=== PATIENT | male | born 1945 | race Caucasian/White ===

== ENCOUNTER 2017-07-04 13:21 | Inpatient (IN) | payer MEDICARE ==
[~2017-07-04] VITALS: Ht 175.3 cm; Wt 80.8 kg
[2017-07-04] MEDS ORDERED: MORPHINE SULFATE 4 MG/ML, 1ML IVPush PRN (14:30)
[2017-07-04] MEDS ORDERED: ONDANSETRON ODT 4 MG PO ONE (14:30)
[2017-07-04 14:40] LABS: BASOPHILS # (AUTO) 0.03 x10^3/uL (0-0.1); BASOPHILS % (AUTO) 0 % (0-1); EOSINOPHILS # (AUTO) 0.15 x10^3/uL (0-0.4); EOSINOPHILS % (AUTO) 2 % (1-7); LYMPHOCYTES # (AUTO) 2.11 x10^3/uL (1-3.4); LYMPHOCYTES % (AUTO) 32 % (22-44); MD NO; MEAN CORPUSCULAR HEMOGLOBIN 30.6 pg (27.5-34.5); MEAN CORPUSCULAR HGB CONC 33.5 g/dL (33.2-36.2); MEAN CORPUSCULAR VOLUME 91.5 fL (81-97); MEAN PLATELET VOLUME 6.7 fL (7.4-10.4); MONOCYTES # (AUTO) 0.61 x10^3/uL (0.2-0.8); MONOCYTES % (AUTO) 9 % (2-9); NEUTROPHILS # (AUTO) 3.73 x10^3/uL (1.8-6.8); NEUTROPHILS % (AUTO) 56 % (42-75); PLATELET COUNT 299 x10^3/uL (130-400); RED BLOOD COUNT 4.88 x10^6/uL (4.38-5.82); RED CELL DISTRIBUTION WIDTH 14.1 % (9.4-14.8)
[2017-07-04 14:49] LABS: INTERNATIONAL NORMALIZED RATIO 0.99 (0.93-1.1); PROTHROMBIN TIME 10.3 Seconds (9.6-11.5)
[2017-07-04] MEDS ORDERED: DIVA-68 PO (14:49)
[2017-07-04] MEDS ORDERED: DULO30CA2 PO (14:49)
[2017-07-04] MEDS ORDERED: LORA1TAB PO (14:49)
[2017-07-04] MEDS ORDERED: TAMS0.4C2 PO (14:49)
[2017-07-04] MEDS ORDERED: PROP120C3 PO (14:49)
[2017-07-04 14:53] LABS: ALANINE AMINOTRANSFERASE 20 U/L (12-78); ALBUMIN 3.7 g/dL (3.4-5.0); ANION GAP 6 mmol/L (5-15); CHLORIDE 111 mmol/L (98-107)
[2017-07-04 14:55] LABS: ALKALINE PHOSPHATASE 49 U/L (45-117); BILIRUBIN,TOTAL 0.4 mg/dL (0.2-1.0); TOTAL PROTEIN 6.4 g/dL (6.4-8.2)
[2017-07-04] MEDS ORDERED: ONDANSETRON ODT 4 MG ONE (14:55)
[2017-07-04] MEDS ORDERED: MORPHINE SULFATE 4 MG/ML, 1ML ONE (15:13)
[2017-07-04] MEDS ORDERED: ONDANSETRON ODT 4 MG PO PRN (15:30)
[2017-07-04] MEDS ORDERED: ACETAMINOPHEN 325 MG TABLET PO PRN (15:30)
[2017-07-04] MEDS ORDERED: POLYETHYLENE GLYCOL 17 GM PACKET PO PRN (15:30)
[2017-07-04] MEDS: ENALAPRILAT 1.25 MG/ML, 2ML IVPush PRN ×2 (17:52→20:13)
[2017-07-04] MEDS: SODIUM CHLORIDE 0.9% 1,000 ML IV SCH (17:53)
[2017-07-04] MEDS ORDERED: hydrALAzine 20 MG/ML, 1ML ONE (20:50)
[2017-07-04] MEDS: DIVALPROEX 500 MG TABLET.DR PO SCH (20:55)
[2017-07-04] MEDS: hydrALAzine 20 MG/ML, 1ML IV PRN (20:55)
[2017-07-04] MEDS: LORazepam 1MG TABLET PO PRN ×2 (21:00→23:11)
[2017-07-05 04:29] LABS: BASOPHILS # (AUTO) 0.04 x10^3/uL (0-0.1); BASOPHILS % (AUTO) 1 % (0-1); EOSINOPHILS # (AUTO) 0.28 x10^3/uL (0-0.4); EOSINOPHILS % (AUTO) 4 % (1-7); LYMPHOCYTES # (AUTO) 2.68 x10^3/uL (1-3.4); LYMPHOCYTES % (AUTO) 36 % (22-44); MD NO; MEAN CORPUSCULAR HEMOGLOBIN 30.4 pg (27.5-34.5); MEAN CORPUSCULAR HGB CONC 33.2 g/dL (33.2-36.2); MEAN CORPUSCULAR VOLUME 91.6 fL (81-97); MEAN PLATELET VOLUME 6.9 fL (7.4-10.4); MONOCYTES # (AUTO) 0.65 x10^3/uL (0.2-0.8); MONOCYTES % (AUTO) 9 % (2-9); NEUTROPHILS % (AUTO) 51 % (42-75); PLATELET COUNT 274 x10^3/uL (130-400); RED BLOOD COUNT 4.59 x10^6/uL (4.38-5.82); RED CELL DISTRIBUTION WIDTH 14.2 % (9.4-14.8)
[2017-07-05 04:38] LABS: ALANINE AMINOTRANSFERASE 18 U/L (12-78); ALBUMIN 3.1 g/dL (3.4-5.0); ANION GAP 8 mmol/L (5-15); CALCIUM 8.5 mg/dL (8.5-10.1); CHLORIDE 110 mmol/L (98-107); CREATININE 0.82 mg/dL (0.7-1.3)
[2017-07-05 04:48] LABS: ALKALINE PHOSPHATASE 44 U/L (45-117); BILIRUBIN,TOTAL 0.3 mg/dL (0.2-1.0); TOTAL PROTEIN 5.5 g/dL (6.4-8.2)
[2017-07-05] MEDS: LORazepam 1MG TABLET PO PRN ×2 (05:12→13:48)
[2017-07-05] MEDS ORDERED: OXYcodone IR 5MG TABLET PO ONE (06:30)
[2017-07-05] MEDS: DULOXETINE 30 MG CAPSULE.DR PO SCH (08:19)
[2017-07-05] MEDS: PROPRANOLOL 120 MG CAP.SA.24H PO SCH (08:19)
[2017-07-05] MEDS: TAMSULOSIN 0.4 MG CAP.ER.24H PO SCH (08:19)
[2017-07-05] MEDS: PANTOPROZOLE 40MG TABLET PO SCH (08:19)
[2017-07-05] MEDS: SENNA/DOCUSATE TABLET PO SCH (08:19)
[2017-07-05 08:53] LABS: PLATELET (PFA) 324 x10^3/uL (130-400)
[2017-07-05 09:40] LABS: ADP CARTRIDGE 68 SECONDS (64-123)
[2017-07-05] MEDS: SODIUM CHLORIDE 0.9% 1,000 ML IV SCH (10:48)
[2017-07-05] MEDS: hydrALAzine 20 MG/ML, 1ML IV PRN ×2 (17:07→23:48)
[2017-07-05 20:03] VITALS: BP 113/52
[2017-07-05 20:34] VITALS: BP 126/59
[2017-07-05 20:45] VITALS: BP 135/64
[2017-07-05] MEDS: DIVALPROEX 500 MG TABLET.DR PO SCH (21:03)
[2017-07-05 21:11] VITALS: BP 139/58
[2017-07-05 21:35] VITALS: BP 110/76
[2017-07-06 04:57] LABS: PLATELET (PFA) 357 x10^3/uL (130-400)
[2017-07-06] MEDS: hydrALAzine 20 MG/ML, 1ML IV PRN ×2 (07:22→21:48)
[2017-07-06] MEDS: SENNA/DOCUSATE TABLET PO SCH (08:02)
[2017-07-06] MEDS: PANTOPROZOLE 40MG TABLET PO SCH (08:02)
[2017-07-06] MEDS: DULOXETINE 30 MG CAPSULE.DR PO SCH (08:02)
[2017-07-06] MEDS: PROPRANOLOL 120 MG CAP.SA.24H PO SCH (08:02)
[2017-07-06] MEDS: TAMSULOSIN 0.4 MG CAP.ER.24H PO SCH (08:02)
[2017-07-06] MEDS: LISINOPRIL 10 MG TABLET PO SCH ×2 (08:15→20:39)
[2017-07-06] MEDS: CARVEDILOL 6.25 MG TABLET PO SCH ×2 (09:08→17:22)
[2017-07-06] MEDS: OXYcodone IR 5MG TABLET PO PRN ×3 (12:29→20:39)
[2017-07-06] MEDS: DIVALPROEX 500 MG TABLET.DR PO SCH (20:40)
[2017-07-06] MEDS: LABETALOL 5MG/ML, 20ML IVPush PRN (23:18)
[2017-07-07] MEDS: LABETALOL 5MG/ML, 20ML IVPush PRN ×2 (01:24→06:10)
[2017-07-07] MEDS: OXYcodone IR 5MG TABLET PO PRN ×4 (01:44→23:50)
[2017-07-07 04:31] LABS: ANION GAP 8 mmol/L (5-15); CHLORIDE 105 mmol/L (98-107); CREATININE 0.92 mg/dL (0.7-1.3)
[2017-07-07] MEDS: hydrALAzine 20 MG/ML, 1ML IV PRN ×4 (04:40→17:17)
[2017-07-07 04:49] LABS: BASOPHILS # (AUTO) 0.04 x10^3/uL (0-0.1); BASOPHILS % (AUTO) 0 % (0-1); EOSINOPHILS # (AUTO) 0.07 x10^3/uL (0-0.4); EOSINOPHILS % (AUTO) 1 % (1-7); LYMPHOCYTES % (AUTO) 14 % (22-44); MD NO; MEAN CORPUSCULAR HGB CONC 33.2 g/dL (33.2-36.2); MEAN CORPUSCULAR VOLUME 90.5 fL (81-97); MEAN PLATELET VOLUME 7.4 fL (7.4-10.4); MONOCYTES % (AUTO) 9 % (2-9); NEUTROPHILS # (AUTO) 8.57 x10^3/uL (1.8-6.8); NEUTROPHILS % (AUTO) 76 % (42-75); PLATELET COUNT 340 x10^3/uL (130-400)
[2017-07-07] MEDS: CARVEDILOL 6.25 MG TABLET PO SCH ×2 (04:55→16:34)
[2017-07-07 05:03] LABS: PLATELET (PFA) 353 x10^3/uL (130-400)
[2017-07-07] MEDS ORDERED: REMIFENTANIL 2 MG ONE (07:02)
[2017-07-07] MEDS ORDERED: MIDAZOLAM 1 MG/ML, 2ML ONE (07:06)
[2017-07-07] MEDS ORDERED: BUPIVACAINE/PF 0.5% ONE (07:10)
[2017-07-07] MEDS ORDERED: BACITRACIN 50,000 UNIT ONE (07:10)
[2017-07-07] MEDS ORDERED: THROMBIN 20,000 UNIT VIAL TP ONE (07:10)
[2017-07-07] MEDS ORDERED: EPINEPHRINE 1 MG/ML, 1ML ONE (07:10)
[2017-07-07] MEDS ORDERED: LIDOCAINE 4%, 4 ML SYR/CANN TP ONE (07:39)
[2017-07-07] MEDS ORDERED: LIDOCAINE-MPF 1%, 5ML ONE (07:39)
[2017-07-07] MEDS ORDERED: LABETALOL 5MG/ML, 20ML IV PRN (08:00)
[2017-07-07] MEDS ORDERED: PROMETHAZINE 25 MG/ML, 1ML IV PRN (08:00)
[2017-07-07] MEDS ORDERED: morphine SULFATE 10 MG/ML, 1ML IV PRN (08:00)
[2017-07-07] MEDS ORDERED: OXYcodone 5 MG/5 ML ORAL.SOL UDC PO PRN (08:00)
[2017-07-07] MEDS ORDERED: ACETAMINOPHEN 325 MG TABLET PO PRN ×2 (08:00→12:30)
[2017-07-07] MEDS ORDERED: ONDANSETRON 2MG/ML, 2ML IVPush PRN (08:00)
[2017-07-07] MEDS ORDERED: BUPIVACAINE/PF-EPI 0.5% 1:200K INFIL ONE (08:36)
[2017-07-07] MEDS ORDERED: DEXAMETHASONE 4 MG/ML, 1ML ONE (08:47)
[2017-07-07] MEDS ORDERED: NEOSTIGMINE 1 MG/ML, 10ML ONE (08:47)
[2017-07-07] MEDS ORDERED: CEFAZOLIN 1,000 MG ONE (08:47)
[2017-07-07] MEDS ORDERED: SUCCINYLCHOLINE 20 MG/ML, 10ML ONE ×2 (08:47→09:01)
[2017-07-07] MEDS ORDERED: GLYCOPYRROLATE 0.2MG/1ML, 5ML ONE (08:47)
[2017-07-07] MEDS ORDERED: PROPOFOL 10 MG/ML, 20ML ONE ×2 (08:47→09:01)
[2017-07-07] MEDS ORDERED: ONDANSETRON 2MG/ML, 2ML ONE (08:47)
[2017-07-07] MEDS: SENNA/DOCUSATE TABLET PO SCH (09:00)
[2017-07-07] MEDS ORDERED: ROCURONIUM 10MG/ML,5ML ONE (09:01)
[2017-07-07] MEDS ORDERED: PHENYLEPHRINE 10 MG/ML ONE ×2 (09:18)
[2017-07-07] MEDS ORDERED: VASOPRESSIN 20 UNIT/ML, 1ML ONE (09:18)
[2017-07-07] MEDS ORDERED: NEOSPORIN OINT, 15GM ONE (09:55)
[2017-07-07] MEDS ORDERED: hydrALAzine 20 MG/ML, 1ML ONE (10:48)
[2017-07-07] MEDS ORDERED: FENTANYL PF 100 MCG/2ML ONE (10:54)
[2017-07-07] MEDS: FENTANYL PF 100 MCG/2ML IV PRN ×2 (11:00→11:19)
[2017-07-07] MEDS ORDERED: OXYcodone 5 MG/5 ML ORAL.SOL UDC ONE (11:22)
[2017-07-07] MEDS ORDERED: ACETAMINOPHEN 650 MG SUPP PR PRN (12:30)
[2017-07-07] MEDS ORDERED: LABETALOL 250 MG in DEXTROSE 5% 200 ML IV PRN (12:30)
[2017-07-07] MEDS ORDERED: ONDANSETRON 2MG/ML, 2ML IV PRN (12:30)
[2017-07-07] MEDS ORDERED: MAGNESIUM HYDROXIDE 8%, 30ML UDC PO PRN (12:30)
[2017-07-07] MEDS ORDERED: NITROPRUSSIDE 50 MG in DEXTROSE 5% 248 ML IV PRN (12:30)
[2017-07-07] MEDS ORDERED: D5%-0.9% NACL+KCL 20MEQ 1,000 ML IV SCH (12:30)
[2017-07-07] MEDS ORDERED: DIPHENHYDRAMINE 50 MG/ML, 1ML IM PRN (12:30)
[2017-07-07] MEDS ORDERED: OXYcodone/APAP 5/325MG TABLET PO PRN (12:30)
[2017-07-07] MEDS ORDERED: BISACODYL 10 MG SUPP PR PRN (12:30)
[2017-07-07] MEDS ORDERED: hydrALAzine 20 MG/ML, 1ML IV PRN (12:30)
[2017-07-07] MEDS ORDERED: DIPHENHYDRAMINE 50 MG/ML, 1ML IV PRN (12:30)
[2017-07-07] MEDS ORDERED: HYDROmorphone 2 MG/ML, 1ML IV PRN (12:30)
[2017-07-07] MEDS: CEFAZOLIN PMX 2GM/50ML 50 ML IVPB SCH ×2 (12:46→23:53)
[2017-07-07] MEDS: ENALAPRILAT 1.25 MG/ML, 2ML IV SCH ×3 (14:52→23:08)
[2017-07-07] MEDS: DULOXETINE 30 MG CAPSULE.DR PO SCH (15:02)
[2017-07-07] MEDS: PANTOPROZOLE 40MG TABLET PO SCH (15:02)
[2017-07-07] MEDS: TAMSULOSIN 0.4 MG CAP.ER.24H PO SCH (15:02)
[2017-07-07] MEDS: ENALAPRILAT 1.25 MG/ML, 2ML IVPush PRN (15:38)
[2017-07-07] MEDS: LABETALOL 5MG/ML, 20ML IV PRN ×2 (16:34→18:37)
[2017-07-07] MEDS: DIVALPROEX 500 MG TABLET.DR PO SCH ×2 (20:24→20:42)
[2017-07-07] MEDS: ACETAMINOPHEN 325 MG TABLET PO PRN (20:42)
[2017-07-07] MEDS: LORazepam 1MG TABLET PO PRN (21:21)
[2017-07-08] MEDS: ENALAPRILAT 1.25 MG/ML, 2ML IV SCH ×6 (02:32→22:32)
[2017-07-08] MEDS: ACETAMINOPHEN 650 MG SUPP PR PRN (02:56)
[2017-07-08] MEDS: CARVEDILOL 6.25 MG TABLET PO SCH ×2 (06:18→18:27)
[2017-07-08] MEDS: SENNA/DOCUSATE TABLET PO SCH (09:00)
[2017-07-08] MEDS ORDERED: SENNA/DOCUSATE TABLET PO SCH (09:00)
[2017-07-08] MEDS: ACETAMINOPHEN 325 MG TABLET PO PRN ×2 (10:31→16:24)
[2017-07-08] MEDS: PANTOPROZOLE 40MG TABLET PO SCH (10:31)
[2017-07-08] MEDS: TAMSULOSIN 0.4 MG CAP.ER.24H PO SCH (10:31)
[2017-07-08] MEDS: DULOXETINE 30 MG CAPSULE.DR PO SCH (10:35)
[2017-07-08] MEDS: DIVALPROEX 500 MG TABLET.DR PO SCH ×2 (13:35→21:21)
[2017-07-08] MEDS: hydrALAzine 20 MG/ML, 1ML IV PRN ×3 (14:36→14:46)
[2017-07-08] MEDS: OXYcodone IR 5MG TABLET PO PRN (21:25)
[2017-07-09] MEDS: hydrALAzine 20 MG/ML, 1ML IV PRN ×2 (00:04→21:56)
[2017-07-09] MEDS: ENALAPRILAT 1.25 MG/ML, 2ML IV SCH ×6 (02:39→22:35)
[2017-07-09] MEDS: OXYcodone IR 5MG TABLET PO PRN ×3 (03:17→23:44)
[2017-07-09 04:16] LABS: BASOPHILS # (AUTO) 0.01 x10^3/uL (0-0.1); BASOPHILS % (AUTO) 0 % (0-1); EOSINOPHILS # (AUTO) 0.03 x10^3/uL (0-0.4); EOSINOPHILS % (AUTO) 0 % (1-7); LYMPHOCYTES # (AUTO) 1.37 x10^3/uL (1-3.4); LYMPHOCYTES % (AUTO) 12 % (22-44); MD NO; MEAN CORPUSCULAR HEMOGLOBIN 30.5 pg (27.5-34.5); MEAN CORPUSCULAR HGB CONC 33.4 g/dL (33.2-36.2); MEAN CORPUSCULAR VOLUME 91.2 fL (81-97); MEAN PLATELET VOLUME 7.6 fL (7.4-10.4); MONOCYTES # (AUTO) 1.33 x10^3/uL (0.2-0.8); MONOCYTES % (AUTO) 11 % (2-9); NEUTROPHILS # (AUTO) 9.19 x10^3/uL (1.8-6.8); NEUTROPHILS % (AUTO) 77 % (42-75); PLATELET COUNT 261 x10^3/uL (130-400); RED BLOOD COUNT 3.92 x10^6/uL (4.38-5.82); RED CELL DISTRIBUTION WIDTH 14.1 % (9.4-14.8)
[2017-07-09 04:22] LABS: ALANINE AMINOTRANSFERASE 14 U/L (12-78); ALBUMIN 2.8 g/dL (3.4-5.0); ANION GAP 9 mmol/L (5-15); CALCIUM 8.4 mg/dL (8.5-10.1); CHLORIDE 110 mmol/L (98-107)
[2017-07-09 04:49] LABS: ALKALINE PHOSPHATASE 46 U/L (45-117); BILIRUBIN,TOTAL 0.6 mg/dL (0.2-1.0); TOTAL PROTEIN 6.1 g/dL (6.4-8.2)
[2017-07-09] MEDS: CARVEDILOL 6.25 MG TABLET PO SCH ×2 (05:42→18:15)
[2017-07-09] MEDS ORDERED: ERGOCALCIFEROL 50,000 UNIT CAPSULE PO STA (08:34)
[2017-07-09] MEDS: DIVALPROEX 500 MG TABLET.DR PO SCH ×2 (08:53→20:40)
[2017-07-09] MEDS: TAMSULOSIN 0.4 MG CAP.ER.24H PO SCH (08:53)
[2017-07-09] MEDS: CYANOCOBALAMIN 1,000 MCG TABLET PO SCH (08:53)
[2017-07-09] MEDS: PANTOPROZOLE 40MG TABLET PO SCH (08:53)
[2017-07-09] MEDS: SENNA/DOCUSATE TABLET PO SCH (08:53)
[2017-07-09] MEDS: DULOXETINE 30 MG CAPSULE.DR PO SCH (08:54)
[2017-07-09] MEDS: CALCIUM/VITAMIN D3 250-125 TABLET PO SCH ×3 (08:55→20:40)
[2017-07-09] MEDS: LISINOPRIL 10 MG TABLET PO SCH ×2 (12:12→22:35)
[2017-07-09] MEDS: THIAMINE 100MG TABLET PO SCH (12:12)
[2017-07-09] MEDS: FOLIC ACID 1 MG TABLET PO SCH (12:12)
[2017-07-10] MEDS: ENALAPRILAT 1.25 MG/ML, 2ML IV SCH ×6 (02:35→22:35)
[2017-07-10 04:32] LABS: MEAN CORPUSCULAR HEMOGLOBIN 30.9 pg (27.5-34.5); MEAN CORPUSCULAR HGB CONC 33.7 g/dL (33.2-36.2); MEAN CORPUSCULAR VOLUME 91.8 fL (81-97); MEAN PLATELET VOLUME 7.8 fL (7.4-10.4); PLATELET COUNT 266 x10^3/uL (130-400); RED BLOOD COUNT 3.96 x10^6/uL (4.38-5.82); RED CELL DISTRIBUTION WIDTH 14.1 % (9.4-14.8)
[2017-07-10 04:46] LABS: ALANINE AMINOTRANSFERASE 13 U/L (12-78); ALBUMIN 2.8 g/dL (3.4-5.0); ANION GAP 11 mmol/L (5-15); CALCIUM 8.2 mg/dL (8.5-10.1); CHLORIDE 107 mmol/L (98-107); CREATININE 0.72 mg/dL (0.7-1.3)
[2017-07-10 04:48] LABS: ALKALINE PHOSPHATASE 53 U/L (45-117); BILIRUBIN,TOTAL 0.6 mg/dL (0.2-1.0); TOTAL PROTEIN 6.5 g/dL (6.4-8.2)
[2017-07-10 04:50] LABS: BASOPHILS # (AUTO) 0.06 x10^3/uL (0-0.1); BASOPHILS % (AUTO) 1 % (0-1); EOSINOPHILS # (AUTO) 0.03 x10^3/uL (0-0.4); EOSINOPHILS % (AUTO) 0 % (1-7); LYMPHOCYTES # (AUTO) 1.17 x10^3/uL (1-3.4); LYMPHOCYTES % (AUTO) 10 % (22-44); MD SCAN; MONOCYTES # (AUTO) 1.67 x10^3/uL (0.2-0.8); MONOCYTES % (AUTO) 14 % (2-9); NEUTROPHILS # (AUTO) 9.37 x10^3/uL (1.8-6.8); NEUTROPHILS % (AUTO) 76 % (42-75)
[2017-07-10] MEDS: CARVEDILOL 6.25 MG TABLET PO SCH ×3 (06:00→18:12)
[2017-07-10] MEDS: PANTOPROZOLE 40MG TABLET PO SCH (07:30)
[2017-07-10] MEDS ORDERED: LISINOPRIL 10 MG TABLET ONE (08:59)
[2017-07-10] MEDS: TAMSULOSIN 0.4 MG CAP.ER.24H PO SCH (09:00)
[2017-07-10] MEDS: CALCIUM/VITAMIN D3 250-125 TABLET PO SCH ×3 (09:00→21:16)
[2017-07-10] MEDS: DIVALPROEX 500 MG TABLET.DR PO SCH (09:00)
[2017-07-10] MEDS ORDERED: POTASSIUM PHOSPHATE 44 MEQ in SODIUM CHLORIDE 0.9% 500 ML IV ONE (09:00)
[2017-07-10] MEDS: DULOXETINE 30 MG CAPSULE.DR PO SCH (09:00)
[2017-07-10] MEDS: SENNA/DOCUSATE TABLET PO SCH (09:00)
[2017-07-10] MEDS: CYANOCOBALAMIN 1,000 MCG TABLET PO SCH (09:00)
[2017-07-10] MEDS: LORazepam 0.5MG TABLET PO PRN ×2 (10:48→23:55)
[2017-07-10] MEDS: LISINOPRIL 10 MG TABLET PO SCH ×2 (11:00→22:36)
[2017-07-10] MEDS: THIAMINE 100MG TABLET PO SCH (11:00)
[2017-07-10] MEDS: FOLIC ACID 1 MG TABLET PO SCH (11:00)
[2017-07-10] MEDS: hydrALAzine 20 MG/ML, 1ML IV PRN (13:21)
[2017-07-10] MEDS: DIVALPROEX 125 MG CAP.SPRINK PO SCH (21:16)
[2017-07-11] MEDS: ENALAPRILAT 1.25 MG/ML, 2ML IV SCH ×5 (02:26→21:23)
[2017-07-11 04:46] LABS: MEAN CORPUSCULAR HEMOGLOBIN 30.2 pg (27.5-34.5); MEAN CORPUSCULAR HGB CONC 33.2 g/dL (33.2-36.2); MEAN PLATELET VOLUME 7.8 fL (7.4-10.4); PLATELET COUNT 282 x10^3/uL (130-400); RED BLOOD COUNT 3.79 x10^6/uL (4.38-5.82); RED CELL DISTRIBUTION WIDTH 13.9 % (9.4-14.8)
[2017-07-11 04:49] LABS: ALBUMIN 2.4 g/dL (3.4-5.0); ANION GAP 9 mmol/L (5-15); CALCIUM 8.5 mg/dL (8.5-10.1); CHLORIDE 112 mmol/L (98-107)
[2017-07-11 04:53] LABS: ALANINE AMINOTRANSFERASE 15 U/L (12-78); ALKALINE PHOSPHATASE 46 U/L (45-117); BILIRUBIN,TOTAL 0.8 mg/dL (0.2-1.0); CREATININE 0.65 mg/dL (0.7-1.3); TOTAL PROTEIN 5.9 g/dL (6.4-8.2)
[2017-07-11 05:13] LABS: BASOPHILS # (AUTO) 0.03 x10^3/uL (0-0.1); BASOPHILS % (AUTO) 0 % (0-1); EOSINOPHILS % (AUTO) 0 % (1-7); LYMPHOCYTES # (AUTO) 0.93 x10^3/uL (1-3.4); LYMPHOCYTES % (AUTO) 9 % (22-44); MD SCAN; MONOCYTES # (AUTO) 1.76 x10^3/uL (0.2-0.8); MONOCYTES % (AUTO) 16 % (2-9); NEUTROPHILS # (AUTO) 8.05 x10^3/uL (1.8-6.8); NEUTROPHILS % (AUTO) 75 % (42-75)
[2017-07-11] MEDS ORDERED: CARVEDILOL 12.5 MG TABLET PO STA (09:20)
[2017-07-11] MEDS: TAMSULOSIN 0.4 MG CAP.ER.24H PO SCH (09:49)
[2017-07-11] MEDS: THIAMINE 100MG TABLET PO SCH (09:50)
[2017-07-11] MEDS: FOLIC ACID 1 MG TABLET PO SCH (09:51)
[2017-07-11] MEDS: DIVALPROEX 500 MG TABLET.DR PO SCH (09:51)
[2017-07-11] MEDS: LISINOPRIL 10 MG TABLET PO SCH ×2 (09:51→22:27)
[2017-07-11] MEDS: DULOXETINE 30 MG CAPSULE.DR PO SCH (09:51)
[2017-07-11] MEDS: PANTOPROZOLE 40MG TABLET PO SCH (09:52)
[2017-07-11] MEDS: SENNA/DOCUSATE TABLET PO SCH (09:52)
[2017-07-11] MEDS: CALCIUM/VITAMIN D3 250-125 TABLET PO SCH ×3 (09:52→21:01)
[2017-07-11] MEDS: CYANOCOBALAMIN 1,000 MCG TABLET PO SCH (09:52)
[2017-07-11] MEDS: CARVEDILOL 12.5 MG TABLET PO SCH (18:06)
[2017-07-11] MEDS: DIVALPROEX 125 MG CAP.SPRINK PO SCH (21:23)
[2017-07-12] MEDS: LORazepam 0.5MG TABLET PO PRN (00:14)
[2017-07-12] MEDS ORDERED: ALBUTEROL SULFATE 2.5 MG/3 ML ONE (00:40)
[2017-07-12] MEDS: ENALAPRILAT 1.25 MG/ML, 2ML IV SCH ×6 (01:33→20:50)
[2017-07-12] MEDS: ENALAPRILAT 1.25 MG/ML, 2ML IVPush PRN ×3 (01:55→06:31)
[2017-07-12] MEDS: ACETAMINOPHEN 650 MG SUPP PR PRN (02:10)
[2017-07-12 04:37] LABS: MEAN CORPUSCULAR HEMOGLOBIN 30.3 pg (27.5-34.5); MEAN CORPUSCULAR VOLUME 91.9 fL (81-97); MEAN PLATELET VOLUME 7.4 fL (7.4-10.4); PLATELET COUNT 305 x10^3/uL (130-400); RED BLOOD COUNT 3.64 x10^6/uL (4.38-5.82); RED CELL DISTRIBUTION WIDTH 13.5 % (9.4-14.8)
[2017-07-12 04:40] LABS: ALANINE AMINOTRANSFERASE 22 U/L (12-78); ALBUMIN 2.3 g/dL (3.4-5.0); ANION GAP 9 mmol/L (5-15); CALCIUM 8.4 mg/dL (8.5-10.1); CHLORIDE 116 mmol/L (98-107); CREATININE 0.68 mg/dL (0.7-1.3)
[2017-07-12 04:42] LABS: ALKALINE PHOSPHATASE 50 U/L (45-117); BILIRUBIN,TOTAL 0.6 mg/dL (0.2-1.0); TOTAL PROTEIN 5.9 g/dL (6.4-8.2)
[2017-07-12 05:18] LABS: BASOPHILS # (AUTO) 0.01 x10^3/uL (0-0.1); BASOPHILS % (AUTO) 0 % (0-1); EOSINOPHILS % (AUTO) 0 % (1-7); LYMPHOCYTES # (AUTO) 0.58 x10^3/uL (1-3.4); LYMPHOCYTES % (AUTO) 4 % (22-44); MD SCAN; MONOCYTES # (AUTO) 2.31 x10^3/uL (0.2-0.8); MONOCYTES % (AUTO) 14 % (2-9); NEUTROPHILS # (AUTO) 13.92 x10^3/uL (1.8-6.8); NEUTROPHILS % (AUTO) 83 % (42-75)
[2017-07-12] MEDS: CARVEDILOL 12.5 MG TABLET PO SCH ×2 (05:22→18:00)
[2017-07-12] MEDS ORDERED: ERGOCALCIFEROL 50,000 UNIT CAPSULE PO SCH (07:00)
[2017-07-12] MEDS: PANTOPROZOLE 40MG TABLET PO SCH (07:18)
[2017-07-12] MEDS: DIVALPROEX 500 MG TABLET.DR PO SCH (09:00)
[2017-07-12] MEDS: CALCIUM/VITAMIN D3 250-125 TABLET PO SCH ×3 (09:00→20:47)
[2017-07-12] MEDS: CYANOCOBALAMIN 1,000 MCG TABLET PO SCH (09:00)
[2017-07-12] MEDS: TAMSULOSIN 0.4 MG CAP.ER.24H PO SCH (09:00)
[2017-07-12] MEDS: DULOXETINE 30 MG CAPSULE.DR PO SCH (09:00)
[2017-07-12] MEDS: SENNA/DOCUSATE TABLET PO SCH (09:00)
[2017-07-12] MEDS: AMPICILLIN/SULBACTAM 3 GM in SODIUM CHLORIDE 0.9% 100 ML IV SCH ×3 (10:14→22:21)
[2017-07-12] MEDS ORDERED: LORazepam 2 MG/ML, 1ML IVPush PRN (10:30)
[2017-07-12] MEDS: FOLIC ACID 1 MG TABLET PO SCH (11:00)
[2017-07-12] MEDS: THIAMINE 100MG TABLET PO SCH (11:00)
[2017-07-12] MEDS: LISINOPRIL 10 MG TABLET PO SCH ×2 (11:05→20:48)
[2017-07-12 17:05] LABS: MICROSCOPIC AUTO
[2017-07-12 17:08] LABS: CULTURE INDICATED? YES
[2017-07-12] MEDS: DIVALPROEX 125 MG CAP.SPRINK PO SCH (20:47)
[2017-07-12] MEDS: AMLODIPINE 5 MG TABLET PO SCH (20:47)
[2017-07-12] MEDS: hydrALAzine 20 MG/ML, 1ML IV PRN (22:50)
[2017-07-13] MEDS: ENALAPRILAT 1.25 MG/ML, 2ML IV SCH ×5 (02:03→15:39)
[2017-07-13] MEDS: AMPICILLIN/SULBACTAM 3 GM in SODIUM CHLORIDE 0.9% 100 ML IV SCH ×4 (03:42→22:15)
[2017-07-13 04:28] LABS: MEAN CORPUSCULAR HEMOGLOBIN 30.7 pg (27.5-34.5); MEAN CORPUSCULAR HGB CONC 33.4 g/dL (33.2-36.2); MEAN CORPUSCULAR VOLUME 91.8 fL (81-97); MEAN PLATELET VOLUME 7.2 fL (7.4-10.4); PLATELET COUNT 320 x10^3/uL (130-400); RED CELL DISTRIBUTION WIDTH 14.2 % (9.4-14.8)
[2017-07-13 04:37] LABS: CALCIUM 8.4 mg/dL (8.5-10.1); CHLORIDE 120 mmol/L (98-107)
[2017-07-13 04:43] LABS: ANION GAP 10 mmol/L (5-15); CREATININE 0.61 mg/dL (0.7-1.3)
[2017-07-13 04:44] LABS: ALANINE AMINOTRANSFERASE 21 U/L (12-78); ALKALINE PHOSPHATASE 67 U/L (45-117); BILIRUBIN,TOTAL 0.7 mg/dL (0.2-1.0); TOTAL PROTEIN 5.8 g/dL (6.4-8.2)
[2017-07-13 04:56] LABS: MD YES
[2017-07-13 04:58] LABS: BANDS%(MANUAL) 10 % (0-7); LYMPHS% (MANUAL) 10 % (22-44); MONOS#(MANUAL) 1.14 x10^3/uL (0.3-2.7); MONOS% (MANUAL) 6 % (2-9); SEG#(MANUAL) 14.06 x10^3/uL (1.8-6.8); SEGS% (MANUAL) 74 % (42-75)
[2017-07-13 04:59] LABS: ANISOCYTOSIS 1+
[2017-07-13 05:00] LABS: <PLATELET ESTIMATE> ADEQUATE; <PLT MORPHOLOGY> NORMAL PLT MORPH
[2017-07-13] MEDS: DIVALPROEX 500 MG TABLET.DR PO SCH (10:13)
[2017-07-13] MEDS: CARVEDILOL 12.5 MG TABLET PO SCH ×2 (10:13→22:15)
[2017-07-13] MEDS: CALCIUM/VITAMIN D3 250-125 TABLET PO SCH ×3 (10:14→22:15)
[2017-07-13] MEDS: AMLODIPINE 5 MG TABLET PO SCH ×2 (10:14→22:15)
[2017-07-13] MEDS: SENNA/DOCUSATE TABLET PO SCH (10:14)
[2017-07-13] MEDS: DULOXETINE 30 MG CAPSULE.DR PO SCH (10:14)
[2017-07-13] MEDS: PANTOPROZOLE 40MG TABLET PO SCH (10:15)
[2017-07-13] MEDS: CYANOCOBALAMIN 1,000 MCG TABLET PO SCH (10:15)
[2017-07-13] MEDS: TAMSULOSIN 0.4 MG CAP.ER.24H PO SCH (10:20)
[2017-07-13] MEDS: FOLIC ACID 1 MG TABLET PO SCH (11:02)
[2017-07-13] MEDS: THIAMINE 100MG TABLET PO SCH (11:02)
[2017-07-13] MEDS: LISINOPRIL 10 MG TABLET PO SCH (14:50)
[2017-07-13] MEDS ORDERED: ENALAPRILAT 1.25 MG/ML, 2ML IV PRN (20:30)
[2017-07-13] MEDS: DIVALPROEX 125 MG CAP.SPRINK PO SCH (22:26)
[2017-07-14] MEDS: LISINOPRIL 10 MG TABLET PO SCH ×2 (03:53→21:15)
[2017-07-14] MEDS: AMPICILLIN/SULBACTAM 3 GM in SODIUM CHLORIDE 0.9% 100 ML IV SCH ×2 (03:54→10:08)
[2017-07-14 05:12] LABS: MEAN CORPUSCULAR HEMOGLOBIN 30.4 pg (27.5-34.5); MEAN CORPUSCULAR HGB CONC 32.9 g/dL (33.2-36.2); MEAN CORPUSCULAR VOLUME 92.4 fL (81-97); MEAN PLATELET VOLUME 7.6 fL (7.4-10.4); PLATELET COUNT 354 x10^3/uL (130-400); RED BLOOD COUNT 4.02 x10^6/uL (4.38-5.82); RED CELL DISTRIBUTION WIDTH 14.5 % (9.4-14.8)
[2017-07-14 05:22] LABS: ALBUMIN 1.8 g/dL (3.4-5.0); ANION GAP 8 mmol/L (5-15); CALCIUM 8.5 mg/dL (8.5-10.1); CHLORIDE 118 mmol/L (98-107)
[2017-07-14 05:26] LABS: ALANINE AMINOTRANSFERASE 25 U/L (12-78); ALKALINE PHOSPHATASE 70 U/L (45-117); BILIRUBIN,TOTAL 0.4 mg/dL (0.2-1.0); TOTAL PROTEIN 5.5 g/dL (6.4-8.2)
[2017-07-14 06:06] LABS: MD YES
[2017-07-14 06:07] LABS: BAND#(MANUAL) 2.07 x10^3/uL; BANDS%(MANUAL) 13 % (0-7); LYMPH#(MANUAL) 2.23 x10^3/uL (1-3.4); LYMPHS% (MANUAL) 14 % (22-44); MONOS#(MANUAL) 0.95 x10^3/uL (0.3-2.7); MONOS% (MANUAL) 6 % (2-9); SEG#(MANUAL) 10.65 x10^3/uL (1.8-6.8); SEGS% (MANUAL) 67 % (42-75)
[2017-07-14 06:12] LABS: <PLATELET ESTIMATE> ADEQUATE; <PLT MORPHOLOGY> NORMAL PLT MORPH; <RBC MORPHOLOGY> NORMAL
[2017-07-14] MEDS: CARVEDILOL 12.5 MG TABLET PO SCH ×2 (06:14→16:55)
[2017-07-14] MEDS: SENNA/DOCUSATE TABLET PO SCH (08:22)
[2017-07-14] MEDS: CALCIUM/VITAMIN D3 250-125 TABLET PO SCH ×3 (08:22→21:16)
[2017-07-14] MEDS: DIVALPROEX 125 MG CAP.SPRINK PO SCH ×2 (08:22→21:15)
[2017-07-14] MEDS: THIAMINE 100MG TABLET PO SCH (08:22)
[2017-07-14] MEDS: DULOXETINE 30 MG CAPSULE.DR PO SCH (08:22)
[2017-07-14] MEDS: DEXTROSE 5% 1,000 ML IV SCH ×2 (08:22→21:16)
[2017-07-14] MEDS: CYANOCOBALAMIN 1,000 MCG TABLET PO SCH (08:22)
[2017-07-14] MEDS: AMLODIPINE 5 MG TABLET PO SCH ×2 (08:23→21:15)
[2017-07-14] MEDS: FOLIC ACID 1 MG TABLET PO SCH (08:23)
[2017-07-14] MEDS: TAMSULOSIN 0.4 MG CAP.ER.24H PO SCH (08:23)
[2017-07-14] MEDS: PANTOPROZOLE 40MG TABLET PO SCH (08:23)
[2017-07-14 10:59] VITALS: BP 148/78
[2017-07-14] MEDS: PIPERACILLIN/TAZO/PMX 3.375GM 50 ML IV SCH ×3 (11:25→23:20)
[2017-07-14 13:05] VITALS: BP 160/71
[2017-07-14] MEDS: hydrALAzine 20 MG/ML, 1ML IV PRN ×2 (13:22→19:24)
[2017-07-14 13:47] VITALS: BP 138/74
[2017-07-14 16:55] VITALS: BP 138/89
[2017-07-14 18:56] VITALS: BP 176/81
[2017-07-14 20:30] VITALS: BP 159/77
[2017-07-15] VITALS (10 sets, daily range): BP systolic 130–173; BP diastolic 68–84
[2017-07-15] MEDS: LABETALOL 5MG/ML, 20ML IV PRN ×2 (02:35→23:44)
[2017-07-15] MEDS: hydrALAzine 20 MG/ML, 1ML IV PRN ×3 (02:35→17:15)
[2017-07-15] MEDS: OXYcodone IR 5MG TABLET PO PRN (02:39)
[2017-07-15] MEDS ORDERED: CARVEDILOL 6.25 MG TABLET ONE (05:08)
[2017-07-15] MEDS: PIPERACILLIN/TAZO/PMX 3.375GM 50 ML IV SCH ×4 (05:18→22:48)
[2017-07-15] MEDS: CARVEDILOL 12.5 MG TABLET PO SCH ×2 (05:18→17:10)
[2017-07-15 05:21] LABS: MEAN CORPUSCULAR HEMOGLOBIN 30.6 pg (27.5-34.5); MEAN CORPUSCULAR HGB CONC 33.5 g/dL (33.2-36.2); MEAN CORPUSCULAR VOLUME 91.2 fL (81-97); MEAN PLATELET VOLUME 7.2 fL (7.4-10.4); PLATELET COUNT 360 x10^3/uL (130-400); RED CELL DISTRIBUTION WIDTH 14.4 % (9.4-14.8)
[2017-07-15 05:26] LABS: ALBUMIN 1.8 g/dL (3.4-5.0); ANION GAP 6 mmol/L (5-15); CALCIUM 7.7 mg/dL (8.5-10.1); CHLORIDE 113 mmol/L (98-107)
[2017-07-15 05:32] LABS: ALANINE AMINOTRANSFERASE 23 U/L (12-78); ALKALINE PHOSPHATASE 69 U/L (45-117); BILIRUBIN,TOTAL 0.5 mg/dL (0.2-1.0); CREATININE 0.62 mg/dL (0.7-1.3); TOTAL PROTEIN 5.3 g/dL (6.4-8.2)
[2017-07-15 06:13] LABS: BASOPHILS # (AUTO) 0.01 x10^3/uL (0-0.1); BASOPHILS % (AUTO) 0 % (0-1); EOSINOPHILS # (AUTO) 0.03 x10^3/uL (0-0.4); EOSINOPHILS % (AUTO) 0 % (1-7); LYMPHOCYTES # (AUTO) 1.27 x10^3/uL (1-3.4); LYMPHOCYTES % (AUTO) 9 % (22-44); MD SCAN; MONOCYTES # (AUTO) 1.55 x10^3/uL (0.2-0.8); MONOCYTES % (AUTO) 11 % (2-9); NEUTROPHILS # (AUTO) 11.81 x10^3/uL (1.8-6.8); NEUTROPHILS % (AUTO) 81 % (42-75)
[2017-07-15] MEDS: DIVALPROEX 125 MG CAP.SPRINK PO SCH ×2 (07:54→20:07)
[2017-07-15] MEDS: CYANOCOBALAMIN 1,000 MCG TABLET PO SCH (07:54)
[2017-07-15] MEDS: DULOXETINE 30 MG CAPSULE.DR PO SCH (07:54)
[2017-07-15] MEDS: FOLIC ACID 1 MG TABLET PO SCH (07:55)
[2017-07-15] MEDS: LISINOPRIL 10 MG TABLET PO SCH ×2 (07:55→20:07)
[2017-07-15] MEDS: THIAMINE 100MG TABLET PO SCH (07:55)
[2017-07-15] MEDS: CALCIUM/VITAMIN D3 250-125 TABLET PO SCH ×3 (07:55→20:07)
[2017-07-15] MEDS: AMLODIPINE 5 MG TABLET PO SCH ×2 (07:55→20:07)
[2017-07-15] MEDS: TAMSULOSIN 0.4 MG CAP.ER.24H PO SCH (07:55)
[2017-07-15] MEDS: PANTOPROZOLE 40MG TABLET PO SCH (07:55)
[2017-07-15] MEDS: SENNA/DOCUSATE TABLET PO SCH (07:56)
[2017-07-15] MEDS: DEXTROSE 5% 1,000 ML IV SCH ×2 (07:56→20:06)
[2017-07-15] MEDS: ACETAMINOPHEN 325 MG TABLET PO PRN ×2 (11:40→17:15)
[2017-07-15] MEDS ORDERED: POTASSIUM CHLORIDE 20 MEQ TAB.ER.PRT PO ONE (18:00)
[2017-07-15] MEDS: LORazepam 0.5MG TABLET PO PRN (23:52)
[2017-07-16] VITALS (9 sets, daily range): BP systolic 132–181; BP diastolic 69–86
[2017-07-16] MEDS ORDERED: CARVEDILOL 6.25 MG TABLET ONE (05:06)
[2017-07-16] MEDS: PIPERACILLIN/TAZO/PMX 3.375GM 50 ML IV SCH ×2 (05:10→12:10)
[2017-07-16] MEDS: LABETALOL 5MG/ML, 20ML IV PRN (05:11)
[2017-07-16] MEDS: CARVEDILOL 12.5 MG TABLET PO SCH ×2 (05:11→16:43)
[2017-07-16] MEDS: DEXTROSE 5% 1,000 ML IV SCH (05:11)
[2017-07-16 06:10] LABS: MEAN CORPUSCULAR HEMOGLOBIN 30.3 pg (27.5-34.5); MEAN CORPUSCULAR HGB CONC 33.4 g/dL (33.2-36.2); MEAN CORPUSCULAR VOLUME 90.6 fL (81-97); MEAN PLATELET VOLUME 6.7 fL (7.4-10.4); PLATELET COUNT 376 x10^3/uL (130-400); RED BLOOD COUNT 3.89 x10^6/uL (4.38-5.82)
[2017-07-16 06:11] LABS: CHLORIDE 108 mmol/L (98-107)
[2017-07-16 06:16] LABS: ALANINE AMINOTRANSFERASE 25 U/L (12-78); ALKALINE PHOSPHATASE 63 U/L (45-117); ANION GAP 8 mmol/L (5-15); BILIRUBIN,TOTAL 0.4 mg/dL (0.2-1.0); CALCIUM 7.7 mg/dL (8.5-10.1); CREATININE 0.66 mg/dL (0.7-1.3); TOTAL PROTEIN 5.5 g/dL (6.4-8.2)
[2017-07-16 06:58] LABS: BASOPHILS # (AUTO) 0.03 x10^3/uL (0-0.1); BASOPHILS % (AUTO) 0 % (0-1); EOSINOPHILS # (AUTO) 0.09 x10^3/uL (0-0.4); EOSINOPHILS % (AUTO) 1 % (1-7); LYMPHOCYTES # (AUTO) 1.06 x10^3/uL (1-3.4); LYMPHOCYTES % (AUTO) 9 % (22-44); MD SCAN; MONOCYTES # (AUTO) 1.24 x10^3/uL (0.2-0.8); MONOCYTES % (AUTO) 11 % (2-9); NEUTROPHILS # (AUTO) 8.94 x10^3/uL (1.8-6.8); NEUTROPHILS % (AUTO) 79 % (42-75)
[2017-07-16] MEDS ORDERED: POTASSIUM CHLORIDE 20 MEQ TAB.ER.PRT PO ONE (07:00)
[2017-07-16] MEDS: hydrALAzine 20 MG/ML, 1ML IV PRN ×2 (08:06→16:43)
[2017-07-16] MEDS: LISINOPRIL 10 MG TABLET PO SCH ×2 (08:14→20:44)
[2017-07-16] MEDS: PANTOPROZOLE 40MG TABLET PO SCH (08:14)
[2017-07-16] MEDS: FOLIC ACID 1 MG TABLET PO SCH (08:14)
[2017-07-16] MEDS: TAMSULOSIN 0.4 MG CAP.ER.24H PO SCH (08:14)
[2017-07-16] MEDS: THIAMINE 100MG TABLET PO SCH (08:14)
[2017-07-16] MEDS: AMLODIPINE 5 MG TABLET PO SCH ×2 (08:16→20:43)
[2017-07-16] MEDS: CALCIUM/VITAMIN D3 250-125 TABLET PO SCH ×3 (08:17→20:43)
[2017-07-16] MEDS: CYANOCOBALAMIN 1,000 MCG TABLET PO SCH (08:17)
[2017-07-16] MEDS: DIVALPROEX 125 MG CAP.SPRINK PO SCH ×2 (08:17→20:43)
[2017-07-16] MEDS: DULOXETINE 30 MG CAPSULE.DR PO SCH (08:17)
[2017-07-16] MEDS: SENNA/DOCUSATE TABLET PO SCH (08:18)
[2017-07-16] MEDS: ACETAMINOPHEN 325 MG TABLET PO PRN (09:48)
[2017-07-16] MEDS ORDERED: CALC1TAB68 PO (13:03)
[2017-07-16] MEDS ORDERED: DIVA125C PO (13:03)
[2017-07-16] MEDS ORDERED: LORA-445 PO (13:03)
[2017-07-16] MEDS ORDERED: LISI-167 PO (13:03)
[2017-07-16] MEDS ORDERED: FOLI-17 PO (13:03)
[2017-07-16] MEDS ORDERED: CEFD300C37 PO (13:03)
[2017-07-16] MEDS ORDERED: ERGO500017 PO (13:03)
[2017-07-16] MEDS ORDERED: THIA100T6 PO (13:03)
[2017-07-16] MEDS ORDERED: CARV12.543 PO (13:03)
[2017-07-16] MEDS ORDERED: AMLO5TAB2 PO (13:03)
[2017-07-16] MEDS ORDERED: MAGN400O7 PO (13:03)
[2017-07-16] MEDS ORDERED: CYAN10005 PO (13:03)
[2017-07-16] MEDS: CEFDINIR 300 MG CAPSULE PO SCH (20:44)
[2017-07-16] MEDS: OXYcodone IR 5MG TABLET PO PRN (20:47)
[2017-07-17 00:16] VITALS: BP 164/76
[2017-07-17 05:19] LABS: MEAN CORPUSCULAR HEMOGLOBIN 30.6 pg (27.5-34.5); MEAN CORPUSCULAR HGB CONC 33.4 g/dL (33.2-36.2); MEAN CORPUSCULAR VOLUME 91.5 fL (81-97); MEAN PLATELET VOLUME 6.6 fL (7.4-10.4); PLATELET COUNT 304 x10^3/uL (130-400); RED BLOOD COUNT 4.01 x10^6/uL (4.38-5.82); RED CELL DISTRIBUTION WIDTH 14.2 % (9.4-14.8)
[2017-07-17 05:28] LABS: ANION GAP 8 mmol/L (5-15); CALCIUM 8.5 mg/dL (8.5-10.1); CHLORIDE 108 mmol/L (98-107); CREATININE 0.63 mg/dL (0.7-1.3)
[2017-07-17] MEDS: hydrALAzine 20 MG/ML, 1ML IV PRN (05:36)
[2017-07-17] MEDS: CARVEDILOL 12.5 MG TABLET PO SCH (05:36)
[2017-07-17 05:46] LABS: BASOPHILS # (AUTO) 0.03 x10^3/uL (0-0.1); BASOPHILS % (AUTO) 0 % (0-1); EOSINOPHILS # (AUTO) 0.09 x10^3/uL (0-0.4); EOSINOPHILS % (AUTO) 1 % (1-7); LYMPHOCYTES # (AUTO) 1.14 x10^3/uL (1-3.4); LYMPHOCYTES % (AUTO) 10 % (22-44); MD SCAN; MONOCYTES # (AUTO) 1.51 x10^3/uL (0.2-0.8); MONOCYTES % (AUTO) 13 % (2-9); NEUTROPHILS # (AUTO) 8.88 x10^3/uL (1.8-6.8); NEUTROPHILS % (AUTO) 76 % (42-75)
[2017-07-17 07:37] VITALS: BP 123/68
[2017-07-17] MEDS: PANTOPROZOLE 40MG TABLET PO SCH (08:18)
[2017-07-17] MEDS: DULOXETINE 30 MG CAPSULE.DR PO SCH (08:20)
[2017-07-17] MEDS: FOLIC ACID 1 MG TABLET PO SCH (08:21)
[2017-07-17] MEDS: CALCIUM/VITAMIN D3 250-125 TABLET PO SCH (08:21)
[2017-07-17] MEDS: DIVALPROEX 125 MG CAP.SPRINK PO SCH (08:21)
[2017-07-17] MEDS: TAMSULOSIN 0.4 MG CAP.ER.24H PO SCH (08:21)
[2017-07-17] MEDS: LISINOPRIL 10 MG TABLET PO SCH (08:22)
[2017-07-17] MEDS: THIAMINE 100MG TABLET PO SCH (08:22)
[2017-07-17] MEDS: CYANOCOBALAMIN 1,000 MCG TABLET PO SCH (08:22)
[2017-07-17] MEDS: SENNA/DOCUSATE TABLET PO SCH (08:22)
[2017-07-17] MEDS: AMLODIPINE 5 MG TABLET PO SCH (08:22)
[2017-07-17] MEDS: CEFDINIR 300 MG CAPSULE PO SCH (08:33)
[2017-07-17] MEDS: ACETAMINOPHEN 325 MG TABLET PO PRN (12:48)
[2017-07-17 13:55] VITALS: BP 125/80
== END 2017-07-17 14:13 | DRG 23 ==
LOC: ED 15:06 → EDIP 15:24 → CCU 16:44 → 4NOR 07-14 10:49
PROVIDERS: ADMIT Internal Medicine; ATTEND Internal Medicine
PROC: 30233R1 Transfusion of Nonautologous Platelets into Peripheral Vein, Percutaneous Approach (ICD-10-PCS; 2017-07-04)
PROC: 00C40ZZ Extirpation of Matter from Intracranial Subdural Space, Open Approach (ICD-10-PCS; principal; 2017-07-07 07:30)
DX: S06.6X0A Traumatic subarachnoid hemorrhage without loss of consciousness, initial encounter (principal); J96.00 Acute respiratory failure, unspecified whether with hypoxia or hypercapnia; J69.0 Pneumonitis due to inhalation of food and vomit; E43 Unspecified severe protein-calorie malnutrition; G93.40 Encephalopathy, unspecified; E87.0 Hyperosmolality and hypernatremia; R13.10 Dysphagia, unspecified; N39.0 Urinary tract infection, site not specified; F41.1 Generalized anxiety disorder; E03.9 Hypothyroidism, unspecified; E55.9 Vitamin D deficiency, unspecified; F32.9 Major depressive disorder, single episode, unspecified; G43.909 Migraine, unspecified, not intractable, without status migrainosus; G47.33 Obstructive sleep apnea (adult) (pediatric); H26.9 Unspecified cataract; R41.3 Other amnesia; I10 Essential (primary) hypertension; N40.0 Benign prostatic hyperplasia without lower urinary tract symptoms; Z79.899 Other long term (current) drug therapy; Z68.26 Body mass index [BMI] 26.0-26.9, adult; Z81.8 Family history of other mental and behavioral disorders; Z82.49 Family history of ischemic heart disease and other diseases of the circulatory system; Z91.81 History of falling
CPT/HCPCS: 36415; 36600; 70450; 70551; 71045; 74230; 80048; 80053; 80164; 81001; 82306; 82607; 82803; 83735; 84100; 84443; 85014; 85025; 85049; 85576; 85610; 85730; 86850; 86900; 87040; 87077; 87081; 87086; 87186; 94640; 96374; C1713; J0171; J0295; J0690; J1100; J1170; J2250; J2405; J2543; J2704; J2710; J3010; J3490; J7070; Q0162; 92523-GN; J0330; J0360; J2060; J2370; J3480; J7030; J7040; J7050; P9035

== ENCOUNTER → 2017-07-04 | Outpatient (CLI) | payer MEDICARE ==
[~2017-07-04] MED LIST: DIVA-68 PO; DULO30CA2 PO; GADOBUTROL 7.5 MMOL/7.5 ML VIAL ONE; LORA1TAB PO; PROP120C3 PO; TAMS0.4C2 PO
== END | disposition home or self-care (01) ==
LOC: CFH 11:45
PROVIDERS: ATTEND Registered Nurse
DX: I62.00 Nontraumatic subdural hemorrhage, unspecified (principal); F33.9 Major depressive disorder, recurrent, unspecified; G43.719 Chronic migraine without aura, intractable, without status migrainosus
CPT/HCPCS: 70553; 82565; A9585

== ENCOUNTER → 2017-11-26 | Outpatient (CLI) | payer MEDICARE ==
[~2017-11-26] MED LIST changes: +AMLO5TAB7 PO; +CALC1TAB68 PO; +CARV12.543 PO; +CEFD300C37 PO; +CYAN10005 PO; +DIVA-61 PO; -DIVA-68 PO; +DIVA125C2 PO; +ERGO500017 PO; +FOLI-17 PO; -GADOBUTROL 7.5 MMOL/7.5 ML VIAL ONE; +LISI-167 PO; +LORA-445 PO; +MAGN400O7 PO; +THIA100T67 PO
== END | disposition home or self-care (01) ==
LOC: CVU 07:29
PROVIDERS: ATTEND Genetic Counselor, MS
DX: M79.604 Pain in right leg (principal); R60.9 Edema, unspecified
CPT/HCPCS: 93970

== ENCOUNTER → 2017-12-03 | Outpatient (CLI) | payer MEDICARE | END | disposition home or self-care (01) | LOC: CFH 09:12 | PROVIDERS: ATTEND Genetic Counselor, MS | DX: R60.0 Localized edema (principal); I10 Essential (primary) hypertension | CPT/HCPCS: 93306 ==

== ENCOUNTER 2018-03-20 10:36 | Outpatient (CLI) | payer MEDICARE ==
[~2018-03-20 10:36] MED LIST changes: +AMLO-150 PO; -AMLO5TAB7 PO
== END 2018-03-20 23:59 | disposition home or self-care (01) ==
LOC: CFH 10:36
PROVIDERS: ATTEND Neurological Surgery
DX: S06.5X0D Traumatic subdural hemorrhage without loss of consciousness, subsequent encounter (principal); X58.XXXA Exposure to other specified factors, initial encounter; Y93.89 Activity, other specified; Y92.89 Other specified places as the place of occurrence of the external cause; Y99.8 Other external cause status
CPT/HCPCS: 70450

== ENCOUNTER 2019-10-28 15:43 | Emergency (ER) | payer MEDICARE ==
[~2019-10-28] VITALS: Ht 177.8 cm; Wt 79.0 kg
[~2019-10-28 15:43] MED LIST changes: +CYAN-27 PO; -CYAN10005 PO; -PROP120C3 PO; +PROP120C50 PO
[2019-10-28] MEDS ORDERED: ASPIRIN 81 MG TABLET CHEW PO ONE (16:30)
[2019-10-28] MEDS ORDERED: SODIUM CHLORIDE FLUSH 10ML SYR IVF ONE (16:30)
[2019-10-28] MEDS ORDERED: ASPIRIN 81 MG TABLET CHEW ONE (16:34)
[2019-10-28] MEDS ORDERED: MECLIZINE CHEWABLE 25 MG TAB ONE (16:35)
--- NOTE | 2019-10-28 16:42 | NUR ---
LABS DRAWN, PCXR COMPLETED AT BS. PT ON ALL ROOM MONITORING, MEDS GIVEN PER ERP ORDER. PT DENIES CP, SOB, DIZZINESS AT THIS TIME. PT STATES DIZZINESS WITH MOVEMENT, AMBULATING. CALL LIGHT WITHIN REACH, WARM BLANKET PROVIDED.
[2019-10-28 16:53] LABS: BASOPHILS # (AUTO) 0.02 x10^3/uL (0-0.1); BASOPHILS % (AUTO) 0 % (0-1); EOSINOPHILS # (AUTO) 0.07 x10^3/uL (0-0.4); EOSINOPHILS % (AUTO) 1 % (1-7); LYMPHOCYTES # (AUTO) 1.68 x10^3/uL (1-3.4); LYMPHOCYTES % (AUTO) 33 % (22-44); MD NO; MEAN CORPUSCULAR HEMOGLOBIN 29.8 pg (27.5-34.5); MEAN CORPUSCULAR HGB CONC 32.9 g/dL (33.2-36.2); MEAN CORPUSCULAR VOLUME 90.4 fL (81-97); MEAN PLATELET VOLUME 6.9 fL (7.4-10.4); MONOCYTES # (AUTO) 0.44 x10^3/uL (0.2-0.8); MONOCYTES % (AUTO) 9 % (2-9); NEUTROPHILS # (AUTO) 2.95 x10^3/uL (1.8-6.8); NEUTROPHILS % (AUTO) 57 % (42-75); PLATELET COUNT 214 x10^3/uL (130-400); RED BLOOD COUNT 4.66 x10^6/uL (4.38-5.82); RED CELL DISTRIBUTION WIDTH 13.4 % (9.4-14.8)
[2019-10-28 17:06] LABS: ALANINE AMINOTRANSFERASE 16 U/L (12-78); ALBUMIN 3.7 g/dL (3.4-5.0); ANION GAP 5 mmol/L (5-15); CALCIUM 8.9 mg/dL (8.5-10.1); CHLORIDE 109 mmol/L (98-107)
[2019-10-28 17:10] LABS: ALKALINE PHOSPHATASE 48 U/L (45-117); BILIRUBIN,TOTAL 0.5 mg/dL (0.2-1.0); TOTAL PROTEIN 6.4 g/dL (6.4-8.2); TROPONIN I < 0.015 ng/mL (0.000-0.045)
[2019-10-28] MEDS ORDERED: ONDANSETRON ODT 4 MG ONE (17:42)
--- NOTE | 2019-10-28 17:52 | NUR ---
ERP IN TO REEVALUATE. ATTEMPT TO GET PT UP, PT WITH DIZZINESS AND NAUSEA IMMEDIATELY WITH POSITION CHANGE TO SITTING. MEDS ORDERED AND PER ERP ORDER FOR NAUSEA AND DIZZINESS UNRELIEVED WITH MECLIZINE. CONTINUE TO MONITOR, ANTICIPATING DISCHARGE.
[2019-10-28] MEDS ORDERED: DIAZEPAM 2 MG TABLET PO ONE (18:00)
[2019-10-28] MEDS ORDERED: ONDANSETRON ODT 4 MG PO ONE (18:00)
[2019-10-28] MEDS ORDERED: MECLIZINE CHEWABLE 25 MG TAB PO ONE (18:00)
--- NOTE | 2019-10-28 18:13 | NUR ---
REPORT TO MAKENZIE, TRANSFER OF CARE AT THIS TIME.
--- NOTE | 2019-10-28 18:59 | NUR ---
PT AMBULATED USING HIS CANE W/O DIFFICULTY. VERBALIZES VERTIGO IS IMPROVED.
[2019-10-28 19:01] VITALS: BP 146/77
--- NOTE | 2019-10-28 19:02 | NUR ---
Patient/Caregiver given discharge instructions and they have confirmed that they understand the instructions. Patient ambulatory with steady gait using his cane. Wheelchair to discharge
== END 2019-10-28 19:03 | disposition home or self-care (01) ==
LOC: ED 17:42
DX: R42 Dizziness and giddiness (principal); R07.89 Other chest pain; R51 Headache; R00.1 Bradycardia, unspecified; R11.0 Nausea
CPT/HCPCS: 36415; 71045; 80053; 83690; 84484; 85025; 93005; 99285; Q0162